=== PATIENT | female | born 1985 | race Caucasian/White ===

== ENCOUNTER 2019-08-31 05:58 | Inpatient (IN) | payer BC, SELFPAY ==
[2019-08-31] VITALS (49 sets, daily range): BP systolic 105–143; BP diastolic 50–99; PULSE 52–98; RESP 13–16; TEMP 36.9–37.7; O2SAT 97–100; BMI 26.0
[2019-08-31 06:40] LABS: Basophils Percent Auto 0.6 % (0.2-1.2); Eosinophils Percent Auto 0.3 % (0-4.4); Hematocrit 37.5 % (37.0-47.0); Hemoglobin 12.8 g/dL (12.0-15.0); Immature Granulocyte Absolute 0.04 K/mm3 (0.00-0.031); Immature Granulocyte Percent A 0.6 % (0-0.5); Lymphocytes Absolute Auto 1.72 K/mm3 (0.9-3.2); Lymphocytes Percent Auto 24.2 % (18.3-44.2); Mean Corpuscular HGB Conc 34.1 g/dl (32-36); Mean Corpuscular Hemoglobin 32.2 pg (26-34); Mean Corpuscular Volume 94.5 fl (80-100); Mean Platelet Volume 11.2 fl (7.4-10.4); Monocytes Absolute Auto 0.5 K/mm3 (0.1-0.6); Monocytes Percent Auto 6.7 % (2.6-8.5); Neutrophils Absolute Auto 4.8 K/mm3 (1.3-6.7); Neutrophils Percent Auto 67.6 % (45.5-73.1); Platelet Count Result 149 k/mm3 (150-375); Red Blood Count 3.97 M/mm3 (4.2-5.4); Red Cell Distribution Width 12.7 % (11.5-14.5); White Blood Count 7.1 K/mm3 (4.5-10.0)
[2019-08-31] MEDS: LACTATED RINGERS 1,000 ML 125 ML IV CONT ×2 (07:06→10:06)
[2019-08-31] MEDS: OXYTOCIN 30 UNITS/NS 500 ML 30 UNITS/500 ML BAG IV CONT (07:07)
[2019-08-31] MEDS: AMPICILLIN 2 GM/NS 100 ML 2 GM/100 ML BAG IVPB (07:07)
--- NOTE | 2019-08-31 07:17 | LDADM ---
This patient, Jason Francois, was admitted to Labor/Delivery/Recovery 104 on 08/31/19 at 05:58. Plans for labor, pain management and were discussed with patient. Patient/family oriented to hospital policies and general routines including ID bracelet, bed and alarms, visiting hours, pain management, procedures, bathroom and other care routines, personal items, smoking policy, room service/diet and guest tray routines, infant security routines, and visiting hours. Patient/Family are encouraged to report perceived risks to care and to ask questions if they do not understand what they are told or what they should do. See OBIX for further documentation.
--- NOTE | 2019-08-31 09:26 | WPDOBADMIT ---
Obstetrics - Admit Note Admission Note: record reviewed. Pertinent additions to the history and/or any subsequent changes in the physical findings that are not consistent with the expected course of the were found. Additions to the history and/or subsequent changes in the physical findings follow. 34 yo comes to L & D at 39 weeks, confirmed by NEDA of 09/07/2019 for MIL. GNS positive and receiving antibiotics as per protocol. h/o HSV, no lesion noted on exam status reassuring AROM performed, clear fluid Planning for epidural Expectant managament of labor.
--- NOTE | 2019-08-31 10:30 | P.PNAN_ITS ---
Anes - Eval Pre Procedure Procedure: labor epidural Date/Time: 08/31/19 10:30 Surgeon: Nadine Preop Diagnosis: Pain during labor Pre Op Diagnosis: Induction Patient Data Age: 34 Gender: F Height: 1.65 m Weight: 71 kg Last Vital Signs Temp 36.9 C 08/31/19 10:08 Pulse 87 08/31/19 10:28 BP 114/63 08/31/19 10:28 Pulse Ox 100 08/31/19 10:27 Allergies Allergy/AdvReac Type Severity Reaction Status Date / Time No Known Allergies Allergy Unverified 10/23/17 15:42 Home Medications Medication Instructions Recorded Confirmed Type PNV cmb#95-ferrous fumarate-FA 1 tablet PO DAILY 08/08/19 08/08/19 History [] sertraline [Zoloft] 50 mg PO DAILY 08/08/19 08/08/19 History sertraline [Zoloft] 100 mg PO DAILY 08/08/19 08/08/19 History Laboratory Tests 08/31/19 08/31/19 08/31/19 06:32 06:32 06:32 WBC 7.1 K/mm3 K/mm3 (4.5-10.0) RBC 3.97 M/mm3 L M/mm3 (4.2-5.4) Hgb 12.8 g/dL g/dL (12.0-15.0) Hct 37.5 % % (37.0-47.0) MCV 94.5 fl fl (80-100) MCH 32.2 pg pg (26-34) MCHC 34.1 g/dl g/dl (32-36) RDW 12.7 % % (11.5-14.5) Plt Count 149 k/mm3 L k/mm3 (150-375) MPV 11.2 fl H fl (7.4-10.4) Immature Gran % (Auto) 0.6 % H % (0-0.5) Neut % (Auto) 67.6 % % (45.5-73.1) Lymph % (Auto) 24.2 % % (18.3-44.2) [place] % (Auto) 6.7 % % (2.6-8.5) Eos % (Auto) 0.3 % % (0-4.4) Baso % (Auto) 0.6 % % (0.2-1.2) Lymph # (Auto) 1.72 K/mm3 K/mm3 (0.9-3.2) [place] # (Auto) 0.5 K/mm3 K/mm3 (0.1-0.6) Eos # (Auto) 0.0 K/mm3 K/mm3 (0-0.3) Baso # (Auto) 0.0 K/mm3 K/mm3 (0.0-0.1) Abs Immat Gran (auto) 0.04 K/mm3 H K/mm3 (0.00-0.031) Absolute Neuts (auto) 4.8 K/mm3 K/mm3 (1.3-6.7) Absolute Nucleated RBC 0.0 K/mm3 K/mm3 (0.0-0.012) Nucleated RBC % 0.0 % % (0.0-0.2) RPR Pending Blood Type O Positive Antibody Screen Negative Patient hx anesthesia problems: none Family hx anesthesia problems: none [facility] Family History Family History (Updated 08/08/19 @ 12:36 by Saleem Tinsley RN) Other No pertinent family history Social History Social History Smoking status: Never smoker Substance use: never Gender identity (if verbalized by the patient): Female Spiritual care concerns: No Exam Day of Procedure 08/31/19 10:30 Patient weight: overweight
[2019-08-31] MEDS: AMPICILLIN 1 GM/NS 50 ML 1 GM/50 ML BAG IVPB (10:36)
--- NOTE | 2019-08-31 14:11 | P.PCNOB_ITS ---
OB - Delivery Note Procedure Delivery date: 08/31/19 events: Labor Induction Intrapartal events: None Induction method: AROM and per pitocin protocol Delivery monitor: external FHT and external uterine Route of delivery: Episiotomy description: None Laceration description: None Specimen: Yes (cord blood, gases) Estimated blood loss (mL): 150 Anesthesia type: Epidural Disposition: floor Complications: None [place] Baby Date of : 08/31/19 Weeks of gestation at delivery: 39 gender: Female Weight (pounds): 6 Weight (ounces): 12 presentation: vertex position: Left Occiput Anterior Placenta delivery description: Spontaneous cord vessel description: 3 Vessels score one minute: 9 score five minutes: 9
[2019-08-31] MEDS: OXYTOCIN 30 UNITS/NS 500 ML 30 UNITS/500 ML BAG 125 UNITS IV CONT (14:39)
--- NOTE | 2019-08-31 17:11 | PC.NURSE ---
1645-Patient transferred to post room #286 via wheelchair. Support person present. Oriented to unit, room, information board, rooming in, admission packet and security measures. Patient verbalizes understanding.
[2019-09-01] MEDS: IBUPROFEN 600 MG TABLET PO (04:52)
[2019-09-01 05:06] LABS: Hematocrit 39.3 % (37.0-47.0); Hemoglobin 13.3 g/dL (12.0-15.0)
[2019-09-01 08:15] VITALS: BP 129/79; PULSE 56; RESP 18; TEMP 36.7; O2SAT 100
[2019-09-01] MEDS: SERTRALINE HCL 50 MG TABLET 150 MG PO (08:35)
[2019-09-01] MEDS: ACETAMINOPHEN 325 MG TABLET 650 MG PO (08:35)
--- NOTE | 2019-09-01 10:44 | WPDANLDPN2 ---
Anes-Prog Note L&D Date/Time: 09/01/19 10:44 Comfortable throughout: labor and delivery Neuraxial method: epidural Epidural/Spinal procedure site: clean & non-tender Neuro status: Neuro function grossly intact. Cardiovascular status: normal Respiratory status: normal Airway patency: baseline Mental status: baseline Post-Op hydration status: normal Vital Signs: Last Vital Signs Temp 36.7 C 09/01/19 08:15 Pulse 56 L 09/01/19 08:15 Resp 18 09/01/19 08:15 BP 129/79 09/01/19 08:15 Pulse Ox 100 09/01/19 08:15 Post-procedural complaints: none Patient feedback: Patient satisfied with anesthetic care.
--- NOTE | 2019-09-01 12:21 | PC.NURSE ---
Patient instructed on viewing the discharge video Mother & Baby Care, The First Two Weeks . Patient was given the opportunity and encouraged to ask questions. Patient verbalized understanding of information shared and has been given the mother/baby guide for home reference.
--- NOTE | 2019-09-01 13:37 | PM.OBDSVD ---
DS: Admitting Diagnosis Admitting Diagnosis Admitting Diagnosis: OB - DS: Summary OB Procedures : None OB Procedures Intrapartum: Spontaneous Vag Delivery OB Procedures: : None Peripartum Data Delivery Method: Natural Vaginal complications: none Time Spent with Patient Time attestation: Total time spent providing and/or coordinating discharge services: Exam GI: GI Palp: Yes Soft to palpation Other: ff below umbilicus DS: Data Data Completed and Pending Labs on day of discharge: Labs from last 24 hours 09/01/19 04:46 Hgb 13.3 Hct 39.3 Discharge Plan Discharge Attending physician on discharge: Vi Mccoy Consulting providers: Stepan Fleming Discharging Clinician: Nelson Marley Patient Disposition: Home, Self-Care Activity: may shower and pelvic rest Diet: as tolerated and regular Patient Instructions: Antibiotic Form Stand Alone Forms: General Discharge Information Follow-up/Referrals: Vi Mccoy MD [Physician] - Discharge Medications: No Action sertraline [Zoloft] 100 mg Tablet 100 mg PO DAILY RF: 0 sertraline [Zoloft] 50 mg Tablet 50 mg PO DAILY RF: 0 PNV cmb#95-ferrous fumarate-FA [] 28 mg iron- 800 mcg Tablet 1 tablet PO DAILY RF: 0 Date of admission: 08/31/19 05:58 Primary Care Provider: PHYSICIAN,BROKERAGE COORDINATOR Admitting Provider: Vi Mccoy Attending physician on admission: Vi Mccoy
--- NOTE | 2019-09-01 13:38 | P.PNOB_ITS ---
OB - PN: Subj Subjective Date/time seen: 09/01/19 13:38 Patient comments: no complaints and tolerating diet [place] baby status: doing well OB - PN: Obj Data Labs CBC & Chem 7: 09/01/19 04:46 Labs: Laboratory Results - last 24 hr 09/01/19 04:46 Hgb 13.3 Hct 39.3 OB - PN A/P Time Spent With Patient Time: Total time spent is greater than 50% in coordination of care (as documented) at patient's floor/unit and/or counseling patient: - d/c home plans IUD Exam Narrative: Exam Narrative: ff below umbilicus
[2019-09-01 13:56] LABS: Rapid Plasma Reagin Non-Reactive (NonReactive)
[2019-09-03 10:58] VITALS: BP 126/89; PULSE 63; RESP 16; TEMP 36.9; O2SAT 99
== END 2019-09-01 15:39 | disposition home or self-care (01) | DRG 807 ==
LOC: ANHLDR 06:31 → ANHOB2 09-01 13:33 → ANHLDR 09-03 09:47 → ANHOB2 09-03 09:47
PROVIDERS: Admitting Provider Obstetrics & Gynecology; Visit Provider Obstetrics & Gynecology
DX: O99.824 Streptococcus B carrier state complicating childbirth (principal); Z37.0 Single live birth; Z3A.39 39 weeks gestation of pregnancy
CPT/HCPCS: 36415; 85014; 85018; 85025; 86592; 86850; 86900; 86901; A9270; J0290; J2590; J2795; J7120

== ENCOUNTER 2021-03-08 10:40 | Outpatient (CLI) | payer OTHER, SELFPAY ==
--- NOTE | ~2021-03-08 | US_ITS ---
EXAMINATION: US OB transvaginal EXAM DATE: 03/08/2021 11:05 INDICATION: Encounter for screening for uncertain dates. 1st trimester. TECHNIQUE: Pelvic obstetrical transabdominal sonogram was performed by a technologist. There are mu ltiple grayscale and Doppler images available for interpretation. There are no earlier studies of th is gestation for comparison. FINDINGS: Uterus measures 10.3 x 7.6 x 8.0 cm, Is retroverted There is intrauterine gestation sac. F etal pole with heart rate confirmed at 163 beats per minute. The 3.5 cm crown-rump length correspond s to estimated gestational age by ultrasound of 10 weeks 3 days, estimated date of confinement 10/02/19 22. Yolk sac is identified. There is no sonographic evidence of subchorionic hemorrhage. The ova robbi are morphologically normal, left may contain the corpus luteal cyst. IMPRESSION: Live intrauterine gestation, age by ultrasound 10 weeks 3 days. Reviewed, dictated and finalized at location A. [facility]
== END 2021-03-08 10:41 ==
PROVIDERS: Visit Provider Nurse Practitioner
DX: Z36.87 Encounter for antenatal screening for uncertain dates (principal); Z3A.10 10 weeks gestation of pregnancy
CPT/HCPCS: 76817

== ENCOUNTER 2021-08-23 15:20 | Outpatient (CLI) | payer OTHER, SELFPAY ==
--- NOTE | ~2021-08-23 | US_ITS ---
EXAMINATION: US OB follow up DATE: 08/23/2021 15:45 INDICATION: Estimated size less than expected for estimated gestational age. Assess growt h and amniotic fluid index. TECHNIQUE: Real-time ultrasound of the pelvis was performed. The interpreting radiologist was not pre sent for the study. COMPARISON: 03/18/2021 FINDINGS: There is a single living fetus in vertex presentation. The placenta is anterior and not low-lying wi th caudal margin 7.7 cm from the internal cervical os. heart rate is beats per minute (bpm). Th e amniotic fluid index is 12.8 cm, which is normal. (5th%-95%: 8.1-24.8 cm at 34 weeks estimated ges tational age). The following biometric data were obtained: BPD: 8.4 cm -> 33 weeks 6 days Head circumference: 30.5 cm -> 34 weeks 0 days Abdominal circumference: 31.7 cm -> 35 weeks 5 days Femur length: 6.5 cm -> 33 weeks 4 days These measurements are concordant. Head circumference to abdominal circumference ratio: 0.96 (normal range 0.94-1.11). Estimated weight: 2506 g (+/-) 376 g or 5 lbs. 8 oz. (+/-) 13 oz. IMPRESSION: 1. Single living fetus in vertex presentation with heart rate of 122 bpm. 2. Normal amniotic fluid index of 12.8 cm. 3. Estimated weight is 54th percentile by Hadlock criteria when 10/01/2021 is used as the estimat ed date of delivery (NEDA). Please correlate with clinical information or earlier ultrasounds for most accurate NEDA. Reviewed, dictated and finalized at location B. IMPRESSION: 1. Single living fetus in vertex presentation with heart rate of 122 bpm. 2. Normal amniotic fluid index of 12.8 cm. 3. Estimated weight is 54th percentile by Hadlock criteria when 10/01/2021 is used as the estimated date of delivery (NEDA). Please correlate with clinical information or earlier ultrasounds for most accurate NEDA.
== END 2021-08-23 15:21 ==
PROVIDERS: PCP Advanced Practice Midwife; Visit Provider Advanced Practice Midwife
DX: O36.5930 Maternal care for other known or suspected poor fetal growth, third trimester, not applicable or unspecified (principal); Z3A.00 Weeks of gestation of pregnancy not specified
CPT/HCPCS: 76816

== ENCOUNTER 2021-09-27 05:58 | Inpatient (IN) | payer OTHER, SELFPAY ==
[2021-09-27] VITALS (140 sets, daily range): BP systolic 67–141; BP diastolic 34–106; PULSE 30–273; RESP 14–18; TEMP 36.1–37.4; O2SAT 86–100; BMI 26.7
[2021-09-27 07:25] LABS: Basophils Percent Auto 0.4 % (0.2-1.2); Eosinophils Percent Auto 0.5 % (0-4.4); Hematocrit 34.8 % (37.0-47.0); Hemoglobin 11.9 g/dL (12.0-15.0); Immature Granulocyte Absolute 0.04 K/mm3 (0.00-0.031); Immature Granulocyte Percent A 0.5 % (0-0.5); Lymphocytes Percent Auto 26.8 % (18.3-44.2); Mean Corpuscular HGB Conc 34.2 g/dl (32-36); Mean Corpuscular Hemoglobin 30.7 pg (26-34); Mean Corpuscular Volume 89.9 fl (80-100); Mean Platelet Volume 10.7 fl (7.4-10.4); Monocytes Absolute Auto 0.6 K/mm3 (0.1-0.6); Monocytes Percent Auto 7.8 % (2.6-8.5); Neutrophils Absolute Auto 4.8 K/mm3 (1.3-6.7); Platelet Count Result 180 k/mm3 (150-375); Red Blood Count 3.87 M/mm3 (4.2-5.4); Red Cell Distribution Width 12.9 % (11.5-14.5); White Blood Count 7.5 K/mm3 (4.5-10.0)
[2021-09-27] MEDS: OXYTOCIN 30 UNITS/NS 500 ML 30 UNITS/500 ML BAG IV CONT (07:35)
[2021-09-27] MEDS: LACTATED RINGERS 1,000 ML 125 ML IV CONT ×3 (07:36→10:50)
[2021-09-27] MEDS: AMPICILLIN 2 GM/NS 100 ML 2 GM/100 ML BAG IVPB (07:37)
--- NOTE | 2021-09-27 07:42 | WPDOBADMIT ---
Obstetrics - Admit Note Admission Note: record reviewed. No pertinent additions to the history and/or any subsequent changes in the physical findings that are not consistent with the expected course of the were found. Additions to the history and/or subsequent changes in the physical findings follow. None.Here for 39 wk MIL. Cervix 3-4/50/-2 AROM with clear fluid.
[2021-09-27 08:24] LABS: Rapid Plasma Reagin Non-Reactive (NonReactive)
--- NOTE | 2021-09-27 08:58 | LDADM ---
This patient, Jason Francois, was admitted to Labor/Delivery/Recovery 107 on 09/27/21 at 05:58. Plans for labor, pain management and were discussed with patient. Patient/family oriented to hospital policies and general routines including ID bracelet, bed and alarms, visiting hours, pain management, procedures, bathroom and other care routines, personal items, smoking policy, room service/diet and guest tray routines, infant security routines, and visiting hours. Patient/Family are encouraged to report perceived risks to care and to ask questions if they do not understand what they are told or what they should do. See OBIX for further documentation.
[2021-09-27] MEDS: AMPICILLIN 1 GM/NS 50 ML 1 GM/50 ML BAG IVPB (11:24)
--- NOTE | 2021-09-27 15:25 | PM.OBPRVD ---
OB - Delivery Note Procedure Delivery date: 09/27/21 Procedure: Induction method: AROM and Per Pitocin Protocol Delivery monitor: External FHT and External Uterine Route of delivery: Laceration Description: None Specimen: No Quantitative Blood Loss (ml): 100 Anesthesia type: Epidural Disposition: Floor Baby Date of : 09/27/21 Weeks of gestation at delivery: 39 Infant gender: Female presentation: vertex position: Right Occiput Anterior Cord Vessel Description: 3 Vessels score one minute: 9 score five minutes: 9
--- NOTE | 2021-09-27 15:26 | PM.OBDSVD ---
DS: Admitting Diagnosis Discharge Date 09/28/21 Admitting Diagnosis MIL at 39 wks DS: Discharge Diagnosis Discharge Diagnosis (1) (normal spontaneous vaginal delivery): Code(s): O80 - Encounter for full-term uncomplicated delivery Status: Acute OB - DS: Summary Hospital Course Hospital Course: Uncomplicated OB Procedures : Ultrasound OB Procedures Intrapartum: Spontaneous Vag Delivery OB Procedures: : None Peripartum Data Delivery Method: Natural Vaginal Laceration Description: None complications: none Status at Discharge Functional status at discharge: independent ambulation Overall status at discharge: patient is progressing back to baseline Time Spent with Patient Time attestation: Total time spent providing and/or coordinating discharge services: DS: Data Data Completed and Pending Labs on day of discharge: Labs from last 24 hours 09/27/21 09/27/21 09/27/21 06:51 06:51 06:51 WBC 7.5 RBC 3.87 L Hgb 11.9 L Hct 34.8 L MCV 89.9 MCH 30.7 MCHC 34.2 RDW 12.9 Plt Count 180 MPV 10.7 H Immature Gran % (Auto) 0.5 Neut % (Auto) 64.0 Lymph % (Auto) 26.8 [place] % (Auto) 7.8 Eos % (Auto) 0.5 Baso % (Auto) 0.4 Lymph # (Auto) 2.00 [place] # (Auto) 0.6 Eos # (Auto) 0.0 Baso # (Auto) 0.0 Abs Immat Gran (auto) 0.04 H Absolute Neuts (auto) 4.8 Absolute Nucleated RBC 0.0 Nucleated RBC % 0.0 RPR Non-reactive Blood Type O Positive Antibody Screen Negative Discharge Plan Discharge Attending physician on discharge: Vi Mccoy Discharging Clinician: Ashanti Cannon Anticipated Discharge Date/Time: 09/28/21 15:26 Patient Disposition: Home, Self-Care Activity: may shower, may drive after 2 weeks and pelvic rest Diet: regular Discharge Instructions: Education: Mom and Baby Guide Given to: Mother Follow-Up: Call your delivering provider's office for an appointment to be seen in: 6 Weeks [facility] follow[facility]up [facility]. Appointment Date/Time: September 29, 2021 at 11:00 am What to expect at your follow-up visit: Blood Pressure Check Call [phone] if you are unable to keep your appointment time. BREAST CARE: * Wear a snug supportive bra. * For engorgement discomfort: Bottle Feeding: * May apply ice packs May take medication for pain relief PERINEAL CARE: * Until bleeding stops, use your isaías bottle after urinating * Change your pad frequently throughout the day * You may take sitz baths several times a day (fill your bathtub with warm water and soak for 20 minutes.) Do NOT bathe in the water * No tub baths until seen by your physician - You may shower ACTIVITY: * Rest as much as possible. * Do not exercise or lift anything heavier than your baby (such as laundry or other children.) * Avoid stairs or driving as much as possible. * Do not put anything into the vagina. No douching, tampons, or sexual activity until seen by physician. NOTIFY PHYSICIAN IF YOU HAVE ANY QUESTIONS OR IF ANY OF THE FOLLOWING SYMPTOMS OCCUR: * If your perineum becomes red, swollen, or more painful than what you have experienced in the hospital. * If your vaginal bleeding becomes foul smelling. * If your vaginal bleeding becomes more heavy than a period or if your bleeding changes from pink to bright red. However, you may pass an occasional walnut-sized clot once or twice for the first week . * If you experience a sharp, shooting pain in you calves. * If you discover a hard, reddened area on your breast or if you experience flu-like symptoms. * If you have a fever of 100.4 or greater DIET: * Eat regular, well-balanced meals. * Drink plenty of fluids daily. If , drink to thirst. Patient Instructions: Antibiotic Form Stand Alone Forms: General
[2021-09-27] MEDS: OXYTOCIN 30 UNITS/NS 500 ML 30 UNITS/500 ML BAG 125 UNITS IV CONT (15:55)
[2021-09-28] MEDS: IBUPROFEN 600 MG TABLET PO ×2 (04:00→14:00)
[2021-09-28 04:46] VITALS: BP 122/81; PULSE 67; RESP 18; TEMP 36.8; O2SAT 100
[2021-09-28 04:50] LABS: Hematocrit 35.1 % (37.0-47.0); Hemoglobin 11.5 g/dL (12.0-15.0)
[2021-09-28 07:30] VITALS: PULSE 66; RESP 18; O2SAT 100
--- NOTE | 2021-09-28 07:30 | PC.NURSE ---
PT introductions made and plan of care discussed per post , pain management, bottle feeding, daily care activities and pending discharge to home. PT received such instructions per one to one discussion, mom baby care guide and demonstrations per shift. PT and spouse both recipients of such instructions and no barriers to learning identified at this time. Pt verbalized understanding of such care.
[2021-09-28 08:00] VITALS: BP 109/76; PULSE 66; RESP 18; TEMP 36.6; O2SAT 100
--- NOTE | 2021-09-28 08:07 | PM.OBPNVD ---
OB - PN: Subj Subjective Date/time seen: 09/28/21 08:07 Patient comments: no complaints baby status: doing well [place] feeding status: exclusively bottle feeding OB - PN: Obj Data Labs CBC & Chem 7: 09/28/21 04:38 Labs: Laboratory Results - last 24 hr 09/27/21 09/27/21 09/28/21 06:51 06:51 04:38 Hgb 11.5 L Hct 35.1 L RPR Non-reactive Blood Type O Positive Antibody Screen Negative OB - PN A/P Plan day: 1 Plan: discharge home Time Spent With Patient Time: Total time spent is greater than 50% in coordination of care (as documented) at patient's floor/unit and/or counseling patient: Review of Systems Review of Systems: All systems reviewed & are unremarkable except as noted in HPI and below Exam Narrative: Alert and oriented. Mood is pleasant and cooperative. Urinating without difficulty. Denies passing any large clots. Perineum with minimal edema. Const: General: no acute distress Orientation/consciousness: patient oriented x3 Limitations: no limitations Resp: Effort & Inspection: normal respiratory effort Auscultation: clear to auscultation bilaterally Cardio: Rate: regular rate GI: Inspection: normal to inspection Neuro: General: patient oriented x3 Extrem: General: normal to inspection Psych: Appearance: grossly normal Mental Status: mental status grossly normal Affect: normal affect Thought process: Normal thought process present
--- NOTE | 2021-09-28 08:09 | PM.OBDSVD ---
DS: Admitting Diagnosis Discharge Date 09/28/21 Admitting Diagnosis IUP DS: Discharge Diagnosis Discharge Diagnosis Plan s/p OB - DS: Summary Hospital Course Hospital Course: Uncomplicated OB Procedures : Ultrasound OB Procedures Intrapartum: Spontaneous Vag Delivery OB Procedures: : None Peripartum Data Delivery Method: Natural Vaginal complications: none Status at Discharge Functional status at discharge: independent ambulation Time Spent with Patient Time attestation: Total time spent providing and/or coordinating discharge services: Exam Narrative: Alert and oriented. Mood is pleasant and cooperative. Urinating without difficulty. Denies passing any large clots. Perineum with minimal edema. Const: General: no acute distress Orientation/consciousness: patient oriented x3 Limitations: no limitations Resp: Effort & Inspection: normal respiratory effort Auscultation: clear to auscultation bilaterally Cardio: Rate: regular rate GI: Inspection: normal to inspection Neuro: General: patient oriented x3 Extrem: General: normal to inspection Psych: Appearance: grossly normal Mental Status: mental status grossly normal Affect: normal affect Thought process: Normal thought process present DS: Data Data Completed and Pending Pending studies at discharge: Pending at discharge 09/27/21 15:21 Surgical [PTH] Routine Labs on day of discharge: Labs from last 24 hours 09/28/21 09/27/21 09/27/21 04:38 06:51 06:51 Hgb 11.5 L Hct 35.1 L RPR Non-reactive Blood Type O Positive Antibody Screen Negative Discharge Plan Discharge Attending physician on discharge: Vi Mccoy Discharging Clinician: Ashanti Cannon Anticipated Discharge Date/Time: 09/28/21 15:26 Patient Disposition: Home, Self-Care Activity: may shower, may drive after 2 weeks and pelvic rest Diet: regular Patient Instructions: Antibiotic Form Stand Alone Forms: General Discharge Information Follow-up/Referrals: Vi Mccoy MD [Physician] - 6 Weeks Discharge Medications: New docusate sodium 100 mg Capsule 100 mg PO BID PRN (Reason: Constipation) 30 Days Qty: 45 0RF ibuprofen 600 mg Tablet 600 mg PO Q6H PRN (Reason: Cramping) 14 Days Qty: 30 0RF KPN Tablet 1 tab PO DAILY 30 Days Qty: 30 0RF Continued alprazolam [Xanax] 0.5 mg tablet 0.5 mg PO DAILY sertraline [Zoloft] 100 mg Tablet 100 mg PO DAILY PNV cmb#95-ferrous fumarate-FA [] 28 mg iron- 800 mcg Tablet 1 tablet PO DAILY Discontinued valacyclovir [Valtrex] 500 mg Tablet 500 mg PO BID Date of admission: 09/27/21 05:58 Primary Care Provider: UNKNOWN,DOCTOR Admitting Provider: Vi Mccoy Attending physician on admission: Vi Mccoy Condition: Stable
[2021-09-28 09:30] VITALS: PULSE 66; RESP 18; O2SAT 100
--- NOTE | 2021-09-28 09:49 | WPDANLDPN2 ---
Anes-Prog Note L&D Date/Time: 09/28/21 09:49 Neuro status: Neuro function grossly intact. Vital Signs: Last Vital Signs Temp 36.6 C 09/28/21 08:00 Pulse 66 09/28/21 08:00 Resp 18 09/28/21 08:00 BP 109/76 09/28/21 08:00 Pulse Ox 100 09/28/21 08:00 O2 Del Method Room Air 09/28/21 04:46 Pain score (VAS): 0 I/O: Intake & Output 09/27/21 09/28/21 09/28/21 23:59 07:59 15:59 Intake Total 1000 Output Total 85 Balance 915 Patient feedback: Patient satisfied with anesthetic care.
[2021-09-28 12:47] VITALS: BP 122/81; PULSE 63; RESP 16; TEMP 37.1; O2SAT 100
--- NOTE | 2021-09-28 16:30 | PC.NURSE ---
PT received discharge instructions per protocol and verbalized understanding of such care.
--- NOTE | 2021-09-28 18:11 | PC.NURSE ---
Pt discharged to home ambulatory accompanied by spouse and and taken to waiting car. Follow up appts confirmed
[2021-09-29 10:49] VITALS: BP 122/87; PULSE 69; RESP 18; TEMP 37; O2SAT 99
== END 2021-09-28 18:11 | disposition home or self-care (01) | DRG 807 ==
LOC: ANHLDR 15:27 → ANHOB2 18:24
PROVIDERS: Admitting Provider Obstetrics & Gynecology Gynecology; Visit Provider Obstetrics & Gynecology Gynecology
DX: O99.824 Streptococcus B carrier state complicating childbirth (principal); O76 Abnormality in fetal heart rate and rhythm complicating labor and delivery; O43.123 Velamentous insertion of umbilical cord, third trimester; Z37.0 Single live birth; Z3A.39 39 weeks gestation of pregnancy
CPT/HCPCS: 36415; 85014; 85018; 85025; 86592; 86850; 86900; 86901; 88307; A9270; J0290; J2590; J2795; J7120

== ENCOUNTER 2023-05-03 16:53 | Outpatient (CLI) | payer SELFPAY ==
[2023-05-03 17:36] LABS: Basophils Absolute Auto 0.1 K/mm3 (0.0-0.1); Basophils Percent Auto 0.6 % (0.2-1.2); Eosinophils Percent Auto 0.4 % (0-4.4); Hematocrit 41.5 % (37.0-47.0); Hemoglobin 13.7 g/dL (12.0-15.0); Immature Granulocyte Absolute 0.04 K/mm3 (0.00-0.031); Immature Granulocyte Percent A 0.4 % (0-0.5); Lymphocytes Absolute Auto 2.05 K/mm3 (0.9-3.2); Lymphocytes Percent Auto 18.9 % (18.3-44.2); Mean Corpuscular Hemoglobin 31.4 pg (26-34); Mean Corpuscular Volume 95.2 fl (80-100); Mean Platelet Volume 9.2 fl (7.4-10.4); Monocytes Absolute Auto 0.5 K/mm3 (0.1-0.6); Monocytes Percent Auto 4.1 % (2.6-8.5); Neutrophils Absolute Auto 8.2 K/mm3 (1.3-6.7); Neutrophils Percent Auto 75.6 % (45.5-73.1); Platelet Count Result 290 k/mm3 (150-375); Red Blood Count 4.36 M/mm3 (4.2-5.4); Red Cell Distribution Width 11.6 % (11.5-14.5); White Blood Count 10.9 K/mm3 (4.5-10.0)
[2023-05-03 17:45] LABS: Alanine Aminotransferase 16 U/L (6-35); Alkaline Phosphatase 74 U/L (38-126); Anion Gap 8 mmol/L (8-16); Aspartate Amino Transferase 24 U/L (14-36); Bilirubin,Total 0.5 mg/dL (0.2-1.3); Blood Urea Nitrogen 13 mg/dL (7-17); Carbon Dioxide 28 mmol/L (22-30); Chloride 100 mmol/L (98-107); Estimated Glomerular Filt Rate > 60; Glucose 104 mg/dL (65-110); Potassium 3.7 mmol/L (3.4-5.0); Sodium 136 mmol/L (137-145)
== END 2023-05-03 16:54 | disposition home or self-care (01) ==
LOC: ANHLAB 16:55
PROVIDERS: PCP Internal Medicine; Visit Provider Nurse Practitioner
DX: I10 Essential (primary) hypertension (principal)
CPT/HCPCS: 36415; 80053; 84443; 85025

== ENCOUNTER 2023-05-05 14:10 | Emergency (ER) | payer BC, SELFPAY ==
[2023-05-05 14:23] VITALS: BP 152/109; PULSE 94; RESP 16; TEMP 36.5; O2SAT 100
--- NOTE | 2023-05-05 14:34 | ED.HA ---
HPI - Headache General Chief Complaint: Headache Stated Complaint: Hypertension Time Seen by Provider: 05/05/23 14:34 Source: patient Mode of arrival: ambulatory Limitations: no limitations History of Present Illness HPI Narrative: 30-year-old female presented for concern of elevated blood pressure. Reports starting losartan for HTN 2 days ago by pcp. She was advised to monitor BPs at home x1 week then call the readings. States she has been checking BP hourly. Today her home reading was 160/110, and was advised to seek further evaluation if the reading was 160. Reports occasional palpitations. Drinks diet mountain dew daily. Denies cp, vision changes, n/v/d/f/c. Tylenol and ibuprofen have helped the headache Related Data Home Medications Medication Instructions Recorded Confirmed methylphenidate HCl 36 mg 72 mg PO DAILY 05/10/22 05/05/23 tablet,extended release 24 hr Allergies Allergy/AdvReac Type Severity Reaction Status Date / Time No Known Allergies Allergy Verified 05/05/23 14:28 Review of Systems Review of Systems: CONSTITUTIONAL: Denies body aches, fever, chills, or sweats. EYES: Denies visual changes, eye pain, redness, or discharge. ENT: Denies rhinorrhea, congestion, sore throat, or otalgia. CARDIOVASCULAR: Denies chest pain, palpitations, or edema. RESPIRATORY: Denies cough or dyspnea. SKIN: Denies rash, itching, or wounds. MUSCULOSKELETAL: Denies back pain, joint pain, or myalgia. NEUROLOGIC: Reports headache, Denies numbness, tingling, or weakness. PSYCH: Reports anxiety. All systems reviewed & are unremarkable except as noted in HPI and below PMFSH Past Medical History Medical History Anxiety Bulging disc Family History Family History Father Asthma Depression Anxiety Mother Cerebrovascular accident Sibling Thyroid disorder Grandparent Heart disease Other No pertinent family history Social History Social History Social History: caffeine Smoking status: Never smoker Alcohol intake: current Alcohol use details: 1-2 a week or not at all Substance use: never Substance use type: does not use Lack of Transportation: No Lack of Food: Never True Current Housing: I Have Housing Concerned About Future Housing: No Difficulty Paying Gas/Electric Bills: No Difficulty Paying for Meds: No Currently Unemployed: No Education: Master's Degree or Higher Difficulty w/ Childcare or Family Care: No Living arrangements: with family Occupation/Education: occupation Gender identity (if verbalized by the patient): Female Spiritual care concerns: No Comments At time of signature, I have reviewed and agree with nursing past medical, surgical, social and family history unless otherwise noted. Please see nursing chart for further information. There is no relevant family history pertinent to the presenting complaint Exam Narrative: GENERAL: Well-appearing EYES: EOMI. No redness or drainage. Conjunctivae normal. ENT: Mucous membranes pink and moist. NECK: Normal AROM. CHEST: No respiratory distress. Clear to auscultation. HEART: Regular rate and rhythm. No murmur appreciated. Normal peripheral pulses. EXTREMITIES: Normal range of motion. No edema. SKIN: Warm, dry, no rash. Capillary refill normal. Normal skin turgor. NEURO: No focal deficits. Alert and oriented x3. Gait steady. PSYCH: Normal affect. No signs of depression or anxiety. Course Course Emergency Course: Patient is aware of diagnosis, understands and agrees to treatment plan. Anticipatory guidance given. Patient agrees to follow-up as directed and is aware of reasons to seek care at the emergency department. Portions of this record may have been created with voice recognition software Level of Care: Express Car
== END 2023-05-05 15:00 | disposition home or self-care (01) ==
PROVIDERS: Emergency Provider Nurse Practitioner Family; PCP Internal Medicine
DX: I10 Essential (primary) hypertension (principal)
CPT/HCPCS: 99213; G0463

== ENCOUNTER 2023-05-09 08:01 | Outpatient (CLI) | payer BC, SELFPAY ==
[2023-05-09 18:01] LABS: Basophils Absolute Auto 0.1 K/mm3 (0.0-0.1); Basophils Percent Auto 1.2 % (0.2-1.2); Eosinophils Absolute Auto 0.1 K/mm3 (0-0.3); Hematocrit 44.4 % (37.0-47.0); Hemoglobin 14.6 g/dL (12.0-15.0); Immature Granulocyte Absolute 0.01 K/mm3 (0.00-0.031); Immature Granulocyte Percent A 0.2 % (0-0.5); Lymphocytes Absolute Auto 1.86 K/mm3 (0.9-3.2); Mean Corpuscular HGB Conc 32.9 g/dl (32-36); Mean Corpuscular Hemoglobin 31.5 pg (26-34); Mean Corpuscular Volume 95.9 fl (80-100); Mean Platelet Volume 9.8 fl (7.4-10.4); Monocytes Absolute Auto 0.5 K/mm3 (0.1-0.6); Monocytes Percent Auto 8.7 % (2.6-8.5); Neutrophils Absolute Auto 2.7 K/mm3 (1.3-6.7); Neutrophils Percent Auto 52.9 % (45.5-73.1); Platelet Count Result 329 k/mm3 (150-375); Red Blood Count 4.63 M/mm3 (4.2-5.4); Red Cell Distribution Width 11.7 % (11.5-14.5); White Blood Count 5.2 K/mm3 (4.5-10.0)
[2023-05-09 18:58] LABS: Anion Gap 6 mmol/L (8-16); Blood Urea Nitrogen 14 mg/dL (7-17); Calcium 9.3 mg/dL (8.4-10.2); Carbon Dioxide 30 mmol/L (22-30); Chloride 101 mmol/L (98-107); Cholesterol 173 mg/dL (0-200); Estimated Glomerular Filt Rate > 60; Glucose 77 mg/dL (65-110); HDL Direct 57 mg/dL; Potassium 4.6 mmol/L (3.4-5.0); Sodium 137 mmol/L (137-145); Triglycerides 41 mg/dL (<150)
[2023-05-09 19:09] LABS: LDL Cholesterol Direct 101 mg/dL
== END 2023-05-09 08:02 | disposition home or self-care (01) ==
LOC: ANHGOSHLAB 08:03
PROVIDERS: PCP Internal Medicine; Visit Provider Clinical Nurse Specialist
DX: D72.829 Elevated white blood cell count, unspecified (principal); I10 Essential (primary) hypertension
CPT/HCPCS: 36415; 80048; 80061; 85025

== ENCOUNTER 2023-05-31 12:54 | Outpatient (CLI) | payer BC, SELFPAY ==
--- NOTE | 2023-05-31 13:10 | ECHO_ITS ---
Patient Info Name: Jason Francois Age: 38 years : 1985 Gender: Female Ht: 65 in Wt: 134 lbs BSA: 1.67 m2 HR: 81 bpm BP: 147 / 103 mmHg Technical Quality: Fair Exam Date: 05/31/2023 1:22 PM Exam Location: Echo Lab Patient Status: Outpatient Admit Date: 05/31/2023 Staff Ordering Physician: Sasha Albarran NP Securities Compliance Examiner: Marielos Ordonez RDCS Attending Provider: Sasha Albarran NP Referring Physician: Deion YIN; Exam Type: CA echo doppler color flow Study Info Indications I10 - Essential (primary) hypertension Complete two-dimensional, color flow and Doppler transthoracic echocardiogram is performed. Summary 1. Complete two-dimensional, color flow and Doppler transthoracic echocardiogram is performed. 2. Left ventricular chamber dimension is normal. 3. Left ventricular systolic function is normal, estimated at 60-65%. 4. The left ventricular diastolic function is normal. 5. No pulmonary hypertension, estimated pulmonary arterial systolic pressure is 38 mmHg. Left Ventricle Tissue doppler E/e' is not performed. Left ventricular chamber dimension is normal. Left ventricular systolic function is normal, estimated at 60-65%. The left ventricular diastolic function is normal. Right Ventricle Right ventricular chamber dimension is normal. Right ventricular systolic function is normal. Left Atria Left atrial chamber dimension is normal. Right Atria Right atrial chamber dimension is normal. Aortic Valve The aortic valve is not well visualized. Cannot determine number of aortic valve leaflets. There is no aortic valve stenosis. There is no aortic valve regurgitation. Pulmonic Valve There is no pulmonic regurgitation. Mitral Valve There is no mitral valve stenosis. There is no mitral valve regurgitation. Tricuspid Valve There is no tricuspid valve regurgitation. No pulmonary hypertension, estimated pulmonary arterial systolic pressure is 38 mmHg. Pericardium/Pleural There is no pericardial effusion. Inferior Vena Cava Normal inferior vena cava with >50% collapse upon inspiration consistent with normal right atrial pressure, 5 mmHg. Aorta The aortic root size at the sinus of Valsalva is normal. Left Ventricular Outflow Tract Name Value Normal LVOT 2D LVOT Diameter 2.0 cm LVOT Doppler LVOT Peak Gradient 7 mmHg LVOT Mean Gradient 4 mmHg LVOT VTI 24 cm LVOT VTI/AV VTI Ratio 0.9 LVOT Stroke Volume 76 ml LVOT CO 18.1 l/min LVOT CI 10.8 l/min/m2 Pulmonic Valve Name Value Normal PV Doppler PV Peak Gradient 4 mmHg Mitral Valve Name Value Normal
== END 2023-05-31 12:55 | disposition home or self-care (01) ==
LOC: ANHCARD 12:55
PROVIDERS: PCP Internal Medicine; Visit Provider Nurse Practitioner
DX: I10 Essential (primary) hypertension (principal)
CPT/HCPCS: 93306